=== PATIENT | male | born 1975 | race African-American/Black ===

== ENCOUNTER 2017-12-14 06:44 | Emergency (ER) | payer MEDICAID ==
[~2017-12-14] VITALS: Ht 175.3 cm; Wt 108.0 kg
[~2017-12-14 06:44] MED LIST: CLIN150 PO; DICL50TA3 PO
[2017-12-14 06:45] VITALS: BP 145/84; PULSE 96; RESP 16; TEMP 98.1; O2SAT 98
[2017-12-14] MEDS ORDERED: AMOX500T PO (07:45)
--- NOTE | 2017-12-14 07:46 | PD ---
HPI Chief Complaint: Cold / Flu Symptoms Time Seen by Provider: 07:15 Travel History International Travel<30 days: No Contact w/Intl Traveler<30days: No Traveled to known affect area: No History of Present Illness HPI This is a 42-year-old male who presents with mild URI-like symptoms and left ear pain 1 week. He denies fever or chills. Symptom severity is moderate. Aggravated by loud noise and slightly relieved with OTC Motrin. PFSH Past Medical History Medical History: Denies Significant Hx Diminished Hearing: No Tetanus Vaccination: Unknown Influenza Vaccination: Yes Past Surgical History Surgical History: No Previous Surgery Social History Alcohol Use: Yes (occasionally) Tobacco Use: Yes (<1 PPD) Substance Use: No Allergies-Medications (Allergen,Severity, Reaction): Coded Allergies: No Known Allergies (Verified Adverse Reaction, Unknown, 12/14/17) Reported Meds & Prescriptions Reported Meds & Active Scripts Active Diclofenac Sodium DR (Diclofenac Sodium) 50 Mg Tabdr 50 Mg PO TID Cleocin (Clindamycin HCl) 150 Mg Cap 300 Mg PO Q6H Review of Systems Except as stated in HPI: all other systems reviewed are Neg General / Constitutional: No: Fever Eyes: No: Visual changes HENT: Positive: Sore Throat, Congestion, Earache Cardiovascular: No: Chest Pain or Discomfort Respiratory: Positive: Cough Gastrointestinal: No: Abdominal Pain Physical Exam Narrative GENERAL: Alert and well-appearing 42-year-old male SKIN: Warm and dry. HEAD: Normocephalic. EYES: . No injection or drainage. Ear/nose/throat: Left TM erythema, bulging, loss of landmarks. No canal swelling or mastoid tenderness. Clear nasal discharge. No pharyngeal erythema or exudate. NECK: Supple, trachea midline. No JVD or lymphadenopathy. CARDIOVASCULAR: Regular rate and rhythm RESPIRATORY: Breath sounds equal bilaterally. No accessory muscle use. GASTROINTESTINAL: Abdomen soft, non-tender, nondistended. MUSCULOSKELETAL: No cyanosis, or edema. Data Data Last Documented VS Vital Signs Date Time Temp Pulse Resp B/P (MAP) Pulse Ox O2 Delivery O2 Flow Rate FiO2 12/14/17 06:45 98.1 96 16 145/84 (104) 98 MDM Medical Decision Making Medical Screen Exam Complete: Yes Emergency Medical Condition: Yes Differential Diagnosis URI, otitis media, bronchitis Narrative Course 42-year-old male here with URI-like symptoms and left TM erythema. Patient be treated for otitis media Diagnosis Primary Impression: Otitis media Qualified Codes: H66.90 - Otitis media, unspecified, unspecified ear Referrals: Primary Care Physician Scripts Amoxicillin (Amoxicillin) 500 Mg Tab 500 MG PO TID for Infection for 10 Days, TAB 0 Refills Prov: Flavia Laurent 12/14/17 Disposition: 01 DISCHARGE HOME Condition: Stable Flavia Laurent Dec 14, 2017 07:46
== END 2017-12-14 08:00 | disposition home or self-care (01) ==
LOC: NEPD 06:44
DX: H66.92 Otitis media, unspecified, left ear (principal); F17.200 Nicotine dependence, unspecified, uncomplicated
CPT/HCPCS: 99283